=== PATIENT | male | born 1940 | race Caucasian/White ===

== ENCOUNTER 2022-01-29 13:29 | Emergency (ER) | payer OTHER ==
[~2022-01-29] VITALS: Ht 180.3 cm; Wt 104.3 kg
[2022-01-29] MEDS ORDERED: PLAVIX75 MG PO (13:39)
[2022-01-29] MEDS ORDERED: TOPROL XL50 M1 PO (13:39)
[2022-01-29] MEDS ORDERED: LIPITOR40 M1 PO (13:39)
== END 2022-01-29 15:58 | disposition home or self-care (01) ==
LOC: ER 13:29
DX: J18.9 Pneumonia, unspecified organism (principal); Z20.822 Contact with and (suspected) exposure to COVID-19